=== PATIENT | male | born 1960 | race African-American/Black ===

== ENCOUNTER 2021-11-14 13:27 | Inpatient (IN) | payer MEDICAID, OTHER ==
[~2021-11-14] VITALS: Ht 182.9 cm; Wt 119.3 kg
[~2021-11-14 13:27] MED LIST: AMOXICILLIN PO; IBUPROFEN PO
[2021-11-14] MEDS ORDERED: IPRATROPIUM BROMIDE (0.02%) 0.5MG/2.5ML NEB HHN STA (14:48)
[2021-11-14] MEDS ORDERED: METHYLPREDNISOLONE SOD SUCC 125 MG/2 ML VIAL IV STA (14:48)
[2021-11-14] MEDS ORDERED: MAGNESIUM 2 G PREMIX 50 ML IV ONE (15:00)
[2021-11-14] MEDS ORDERED: ALBUTEROL (0.083%) 2.5MG/3ML NEB HHN SCH (15:00)
[2021-11-14] MEDS ORDERED: MORPHINE SULFATE 4 MG/ML CPJ (NOT FOR IM USE) IV ONE ×2 (15:00→21:00)
[2021-11-14 15:06] LABS: HEMATOCRIT. 23.2 % (42.0-52.0); HEMOGLOBIN. 7.8 g/dL (14.0-18.0); MEAN CORPUSCULAR HEMOGLOBIN 29.3 pg (28.0-32.0); MEAN CORPUSCULAR VOLUME 87.1 fL (80.0-94.0); MEAN PLATELET VOLUME 6.7 fl (7.4-10.4); PLATELET 133 x1000/uL (130-400); RED BLOOD CELL COUNT 2.67 mill/uL (4.7-6.1); RED CELL DISTRIBUTION WIDTH 17.6 % (11.6-14.6)
[2021-11-14] MEDS ORDERED: ALBUTEROL (0.083%) 2.5MG/3ML NEB ONE (15:10)
[2021-11-14 15:15] LABS: CHLORIDE 102 mEq/L (98-107)
[2021-11-14] MEDS ORDERED: ONDANSETRON HCL 4MG/2ML INJ IV ONE (15:30)
[2021-11-14 16:07] LABS: NUCLEATED RED BLOOD CELLS 1 /100 WBC; PLATELET ESTIMATE NORMAL
[2021-11-14] MEDS ORDERED: ENOXAPARIN 100MG/ML SYR SUBCUT ONE (21:00)
[2021-11-15] VITALS (10 sets, daily range): BP systolic 123–146; BP diastolic 75–105
[2021-11-15] MEDS ORDERED: MORPHINE SULFATE 2 MG/ML CPJ (NOT FOR IM USE) IV PRN (04:45)
[2021-11-15] MEDS: LORAZEPAM 0.5MG TABLET PO PRN ×2 (05:01→18:47)
[2021-11-15] MEDS ORDERED: LIDOCAINE HCL 1% 30ML VIAL (10MG/ML) ONE (07:34)
[2021-11-15] MEDS: ONDANSETRON HCL 4MG/2ML INJ IV PRN (08:19)
[2021-11-15] MEDS ORDERED: CARV6.2548 MT (08:50)
[2021-11-15] MEDS ORDERED: FERR-71 MT (08:51)
[2021-11-15] MEDS ORDERED: PANT40TA51 MT (08:51)
[2021-11-15] MEDS ORDERED: IPRATROPIUM/ALBUTEROL 0.5-3(2.5)MG/3ML NEB HHN PRN ×2 (09:30→10:30)
[2021-11-15] MEDS ORDERED: NALOXONE HCL 0.4MG/ML VIAL IV PRN (09:45)
[2021-11-15 10:08] LABS: HEMATOCRIT. 44.2 % (42.0-52.0); HEMOGLOBIN. 14.7 g/dL (14.0-18.0); MEAN CORPUSCULAR HEMOGLOBIN 29.2 pg (28.0-32.0); MEAN CORPUSCULAR VOLUME 87.6 fL (80.0-94.0); MEAN PLATELET VOLUME 7.6 fl (7.4-10.4); PLATELET 80 x1000/uL (130-400); RED BLOOD CELL COUNT 5.05 mill/uL (4.7-6.1); RED CELL DISTRIBUTION WIDTH 17.9 % (11.6-14.6)
[2021-11-15 10:15] LABS: CHLORIDE 102 mEq/L (98-107)
[2021-11-15] MEDS: HYDROCODONE/ACETAMINOPHEN 5/325MG TABLET PO PRN ×2 (10:49→16:53)
[2021-11-15] MEDS: METHYLPREDNISOLONE SOD SUCC 40 MG/ML VIAL IV SCH ×2 (10:49→17:35)
[2021-11-15] MEDS ORDERED: ACETAMINOPHEN 325MG TABLET PO PRN (12:15)
[2021-11-15] MEDS ORDERED: CLONIDINE 0.1MG TABLET PO PRN (12:15)
[2021-11-15] MEDS: DOCUSATE SODIUM SUGAR FREE 100MG/10ML UDC PO SCH ×2 (12:30→16:25)
[2021-11-15] MEDS: IPRATROPIUM/ALBUTEROL 0.5-3(2.5)MG/3ML NEB HHN SCH ×3 (12:37→20:33)
[2021-11-15] MEDS: PANTOPRAZOLE 40MG DR TABLET PO SCH (13:12)
[2021-11-15] MEDS ORDERED: VANCOMYCIN 2,000 MG in DEXT 5% WATER 500 ML IV NR (13:30)
[2021-11-15 14:24] LABS: CLARITY URINE CLEAR (CLEAR); COLOR URINE YELLOW (YELLOW); KETONES URINE TRACE (NEGATIVE); LEUKOCYTE ESTERASE URINE NEGATIVE (NEGATIVE); NITRITE URINE NEGATIVE (NEGATIVE); OCCULT BLOOD URINE NEGATIVE (NEGATIVE); PH URINE 5.5 (4.5-8.0); PROTEIN URINE TRACE (NEGATIVE); SPECIFIC GRAVITY URINE 1.023 (1.005-1.030); UROBILINOGEN URINE 0.2 E.U./dL (0.2-1.0)
[2021-11-15] MEDS: MAGNESIUM/ALUMINUM HYDROXIDE/SIMETHICONE 30ML UDC PO PRN (14:30)
[2021-11-15 14:37] LABS: *AMPHETAMINES SCREEN URINE NEGATIVE (NEGATIVE); *BARBITURATES SCREEN URINE NEGATIVE (NEGATIVE); *BENZODIAZEPINES SCREEN URINE NEGATIVE (NEGATIVE)
[2021-11-15 14:38] LABS: *COCAINE SCREEN URINE NEGATIVE (NEGATIVE); CANNABINOID URINE SCREEN NEGATIVE (NEGATIVE); METHADONE URINE SCREEN NEGATIVE (NEGATIVE); OPIATES URINE SCREEN PRESUMTIVE POSITIVE (NEGATIVE); PHENCYCLIDINE URINE SCREEN NEGATIVE (NEGATIVE)
[2021-11-15] MEDS: PIPERACILLIN/TAZOBACTAM 3.375 G in DEXTROSE 5% WATER 50 ML IV SCH ×2 (16:53→23:32)
[2021-11-15] MEDS: CARVEDILOL 6.25 MG TABLET NG SCH (16:54)
[2021-11-15] MEDS ORDERED: DOCUSATE SODIUM 100MG CAPSULE PO SCH (17:00)
[2021-11-15] MEDS ORDERED: ENOXAPARIN 30MG/0.3ML SYR SUBCUT SCH (21:00)
[2021-11-16] VITALS (22 sets, daily range): BP systolic 99–142; BP diastolic 60–102
[2021-11-16] MEDS: IPRATROPIUM/ALBUTEROL 0.5-3(2.5)MG/3ML NEB HHN SCH ×6 (00:33→20:43)
[2021-11-16] MEDS: METHYLPREDNISOLONE SOD SUCC 40 MG/ML VIAL IV SCH ×3 (03:08→16:39)
[2021-11-16 05:25] LABS: CHLORIDE 100 mEq/L (98-107)
[2021-11-16 05:31] LABS: PHOSPHORUS 4.4 mg/dL (2.5-4.9)
[2021-11-16 05:32] LABS: LDL CHOLESTEROL 63 mg/dL (5-100)
[2021-11-16 05:33] LABS: HDL CHOLESTEROL 48 mg/dL (40-59)
[2021-11-16 05:36] LABS: CREATINE KINASE 87 IU/L (39-308)
[2021-11-16 05:37] LABS: T4 FREE 0.99 ng/dL (0.76-1.46)
[2021-11-16] MEDS: PIPERACILLIN/TAZOBACTAM 3.375 G in DEXTROSE 5% WATER 50 ML IV SCH (05:52)
[2021-11-16] MEDS: LORAZEPAM 0.5MG TABLET PO PRN (07:46)
[2021-11-16] MEDS: ONDANSETRON HCL 4MG/2ML INJ IV PRN (07:49)
[2021-11-16] MEDS ORDERED: PANTOPRAZOLE 40MG DR TABLET PO SCH (09:00)
[2021-11-16] MEDS: HYDROCODONE/ACETAMINOPHEN 5/325MG TABLET PO PRN ×2 (09:26→21:41)
[2021-11-16] MEDS: CARVEDILOL 6.25 MG TABLET NG SCH ×2 (09:27→16:40)
[2021-11-16] MEDS: FERROUS SULFATE 325MG TABLET PO SCH (09:27)
[2021-11-16] MEDS: DOCUSATE SODIUM SUGAR FREE 100MG/10ML UDC PO SCH ×2 (09:27→16:39)
[2021-11-16] MEDS: PANTOPRAZOLE 40MG DR TABLET PO SCH (09:34)
[2021-11-16 10:00] LABS: NUCLEATED RED BLOOD CELLS 22 /100 WBC; PLATELET ESTIMATE DECREASED
[2021-11-16] MEDS: MAGNESIUM/ALUMINUM HYDROXIDE/SIMETHICONE 30ML UDC PO PRN ×2 (10:51→23:28)
[2021-11-16] MEDS: LORAZEPAM 1MG TABLET PO SCH ×2 (11:34→16:40)
[2021-11-16 12:00] LABS: BASOPHILS % 0.2 % (0.0-2.0); EOSINOPHILS % 0.3 % (0.0-5.0); LYMPHOCYTES % 34.7 % (20.0-50.0); MEAN CORPUSCULAR HEMOGLOBIN 29.8 pg (28.0-32.0); MEAN CORPUSCULAR VOLUME 86.8 fL (80.0-94.0); MEAN PLATELET VOLUME 7.6 fl (7.4-10.4); MONOCYTES % 9.1 % (2.0-8.0); NEUTROPHILS % 55.7 % (40.0-76.0); PLATELET 118 x1000/uL (130-400); RED BLOOD CELL COUNT 2.12 mill/uL (4.7-6.1); RED CELL DISTRIBUTION WIDTH 17.4 % (11.6-14.6)
[2021-11-16 12:03] LABS: HEMATOCRIT. 18.4 % (42.0-52.0); HEMOGLOBIN. 6.3 g/dL (14.0-18.0)
[2021-11-16 13:15] LABS: INR 1.1
[2021-11-16] MEDS ORDERED: VANCOMYCIN 1250MG in DEXTROSE 5% WATER 250ML IV SCH (18:00)
[2021-11-16] MEDS ORDERED: VANCOMYCIN 1.25GM PMX (XELLIA) 250 ML IV SCH (18:00)
[2021-11-17] VITALS (10 sets, daily range): BP systolic 104–142; BP diastolic 73–90
[2021-11-17] MEDS: IPRATROPIUM/ALBUTEROL 0.5-3(2.5)MG/3ML NEB HHN SCH ×6 (00:34→21:00)
[2021-11-17] MEDS: METHYLPREDNISOLONE SOD SUCC 40 MG/ML VIAL IV SCH ×3 (02:47→17:46)
[2021-11-17] MEDS: HYDROCODONE/ACETAMINOPHEN 5/325MG TABLET PO PRN ×3 (03:39→17:47)
[2021-11-17 07:15] LABS: BASOPHILS % 0.3 % (0.0-2.0); EOSINOPHILS % 0.6 % (0.0-5.0); HEMATOCRIT. 22.8 % (42.0-52.0); LYMPHOCYTES % 21.4 % (20.0-50.0); MEAN CORPUSCULAR HEMOGLOBIN 29.7 pg (28.0-32.0); MEAN PLATELET VOLUME 7.7 fl (7.4-10.4); MONOCYTES % 10.3 % (2.0-8.0); NEUTROPHILS % 67.4 % (40.0-76.0); PLATELET 121 x1000/uL (130-400); RED BLOOD CELL COUNT 2.69 mill/uL (4.7-6.1); RED CELL DISTRIBUTION WIDTH 16.9 % (11.6-14.6)
[2021-11-17 08:23] LABS: PHOSPHORUS 2.3 mg/dL (2.5-4.9)
[2021-11-17] MEDS: LORAZEPAM 1MG TABLET PO SCH ×2 (08:31→17:46)
[2021-11-17] MEDS: FERROUS SULFATE 325MG TABLET PO SCH (08:31)
[2021-11-17] MEDS: CARVEDILOL 6.25 MG TABLET NG SCH ×2 (08:31→17:47)
[2021-11-17] MEDS: PANTOPRAZOLE 40MG DR TABLET PO SCH (08:35)
[2021-11-17] MEDS: DOCUSATE SODIUM SUGAR FREE 100MG/10ML UDC PO SCH ×2 (08:35→17:00)
[2021-11-17] MEDS: CALCIUM CARBONATE 500MG TABLET CHEW PO PRN ×3 (09:13→21:32)
[2021-11-17] MEDS: ONDANSETRON HCL 4MG/2ML INJ IV PRN ×2 (13:47→23:39)
[2021-11-17] MEDS ORDERED: DEXT 5%/0.45% NACL 500ML 500 ML IV ONE (20:00)
[2021-11-17] MEDS: MORPHINE SULFATE 2 MG/ML CPJ (NOT FOR IM USE) IV PRN ×2 (20:07→23:43)
[2021-11-18] VITALS (8 sets, daily range): BP systolic 113–137; BP diastolic 57–81
[2021-11-18] MEDS: IPRATROPIUM/ALBUTEROL 0.5-3(2.5)MG/3ML NEB HHN SCH ×6 (00:22→20:18)
[2021-11-18] MEDS: METHYLPREDNISOLONE SOD SUCC 40 MG/ML VIAL IV SCH ×3 (02:40→17:05)
[2021-11-18] MEDS: MORPHINE SULFATE 2 MG/ML CPJ (NOT FOR IM USE) IV PRN ×3 (04:05→20:47)
[2021-11-18] MEDS: ONDANSETRON HCL 4MG/2ML INJ IV PRN ×3 (05:58→20:42)
[2021-11-18] MEDS: PANTOPRAZOLE 40MG DR TABLET PO SCH (07:30)
[2021-11-18 07:31] LABS: BASOPHILS % 0.2 % (0.0-2.0); EOSINOPHILS % 0.7 % (0.0-5.0); HEMATOCRIT. 24.3 % (42.0-52.0); HEMOGLOBIN. 8.2 g/dL (14.0-18.0); LYMPHOCYTES % 26.2 % (20.0-50.0); MEAN CORPUSCULAR HEMOGLOBIN 29.1 pg (28.0-32.0); MEAN CORPUSCULAR VOLUME 85.9 fL (80.0-94.0); NEUTROPHILS % 62.9 % (40.0-76.0); PLATELET 115 x1000/uL (130-400); RED BLOOD CELL COUNT 2.83 mill/uL (4.7-6.1)
[2021-11-18 07:37] LABS: CHLORIDE 106 mEq/L (98-107)
[2021-11-18 07:42] LABS: PHOSPHORUS 2.6 mg/dL (2.5-4.9)
[2021-11-18] MEDS: LORAZEPAM 1MG TABLET PO SCH ×2 (09:00→17:05)
[2021-11-18] MEDS: FERROUS SULFATE 325MG TABLET PO SCH (09:00)
[2021-11-18] MEDS: DOCUSATE SODIUM SUGAR FREE 100MG/10ML UDC PO SCH ×2 (09:00→17:05)
[2021-11-18] MEDS: CARVEDILOL 6.25 MG TABLET NG SCH ×2 (09:00→17:05)
[2021-11-18] MEDS: MAGNESIUM/ALUMINUM HYDROXIDE/SIMETHICONE 30ML UDC PO PRN (23:01)
[2021-11-19] VITALS (12 sets, daily range): BP systolic 119–141; BP diastolic 59–96
[2021-11-19] MEDS: IPRATROPIUM/ALBUTEROL 0.5-3(2.5)MG/3ML NEB HHN SCH ×5 (00:58→15:55)
[2021-11-19] MEDS: MORPHINE SULFATE 2 MG/ML CPJ (NOT FOR IM USE) IV PRN ×4 (01:43→21:31)
[2021-11-19] MEDS: ONDANSETRON HCL 4MG/2ML INJ IV PRN (04:29)
[2021-11-19] MEDS: DOCUSATE SODIUM SUGAR FREE 100MG/10ML UDC PO SCH ×2 (08:15→16:34)
[2021-11-19] MEDS: METHYLPREDNISOLONE SOD SUCC 40 MG/ML VIAL IV SCH ×2 (08:15→16:34)
[2021-11-19] MEDS: FERROUS SULFATE 325MG TABLET PO SCH (08:16)
[2021-11-19] MEDS: LORAZEPAM 1MG TABLET PO SCH ×2 (08:16→16:32)
[2021-11-19] MEDS: PANTOPRAZOLE 40MG DR TABLET PO SCH (08:19)
[2021-11-19] MEDS: CARVEDILOL 6.25 MG TABLET NG SCH ×2 (08:52→16:33)
[2021-11-19] MEDS: HYDROCODONE/ACETAMINOPHEN 5/325MG TABLET PO PRN ×3 (08:53→23:44)
[2021-11-19 11:18] LABS: BASOPHILS % 0.2 % (0.0-2.0); EOSINOPHILS % 0.6 % (0.0-5.0); HEMATOCRIT. 24.1 % (42.0-52.0); HEMOGLOBIN. 8.2 g/dL (14.0-18.0); LYMPHOCYTES % 35.9 % (20.0-50.0); MEAN CORPUSCULAR HEMOGLOBIN 29.5 pg (28.0-32.0); MEAN CORPUSCULAR VOLUME 86.4 fL (80.0-94.0); MONOCYTES % 5.3 % (2.0-8.0); RED BLOOD CELL COUNT 2.79 mill/uL (4.7-6.1); RED CELL DISTRIBUTION WIDTH 17.5 % (11.6-14.6)
[2021-11-19 11:23] LABS: CHLORIDE 106 mEq/L (98-107)
[2021-11-19 11:37] LABS: MEAN PLATELET VOLUME 7.1 fl (7.4-10.4); PLATELET 112 x1000/uL (130-400)
[2021-11-19] MEDS ORDERED: P20 MT (15:36)
[2021-11-19] MEDS ORDERED: LORA-250 PO (15:36)
[2021-11-19] MEDS ORDERED: PANT40TA51 MT (15:36)
[2021-11-20] VITALS (8 sets, daily range): BP systolic 103–138; BP diastolic 72–86
[2021-11-20] MEDS: MORPHINE SULFATE 2 MG/ML CPJ (NOT FOR IM USE) IV PRN ×3 (01:51→12:45)
[2021-11-20] MEDS: IPRATROPIUM/ALBUTEROL 0.5-3(2.5)MG/3ML NEB HHN SCH ×3 (04:32→14:09)
[2021-11-20] MEDS: ONDANSETRON HCL 4MG/2ML INJ IV PRN ×2 (04:38→14:48)
[2021-11-20] MEDS: HYDROCODONE/ACETAMINOPHEN 5/325MG TABLET PO PRN (04:38)
[2021-11-20] MEDS: PANTOPRAZOLE 40MG DR TABLET PO SCH (06:40)
[2021-11-20 07:14] LABS: BASOPHILS % 0.1 % (0.0-2.0); EOSINOPHILS % 0.7 % (0.0-5.0); HEMATOCRIT. 24.8 % (42.0-52.0); HEMOGLOBIN. 8.5 g/dL (14.0-18.0); LYMPHOCYTES % 34.4 % (20.0-50.0); MEAN CORPUSCULAR HEMOGLOBIN 29.6 pg (28.0-32.0); MEAN CORPUSCULAR VOLUME 86.6 fL (80.0-94.0); MONOCYTES % 9.1 % (2.0-8.0); NEUTROPHILS % 55.7 % (40.0-76.0); PLATELET 113 x1000/uL (130-400); RED BLOOD CELL COUNT 2.87 mill/uL (4.7-6.1); RED CELL DISTRIBUTION WIDTH 16.9 % (11.6-14.6)
[2021-11-20 07:17] LABS: CHLORIDE 109 mEq/L (98-107)
[2021-11-20 07:21] LABS: PHOSPHORUS 4.3 mg/dL (2.5-4.9)
[2021-11-20] MEDS: FERROUS SULFATE 325MG TABLET PO SCH (08:14)
[2021-11-20] MEDS: DOCUSATE SODIUM SUGAR FREE 100MG/10ML UDC PO SCH (08:15)
[2021-11-20] MEDS: METHYLPREDNISOLONE SOD SUCC 40 MG/ML VIAL IV SCH (08:15)
[2021-11-20] MEDS: CARVEDILOL 6.25 MG TABLET NG SCH (08:16)
[2021-11-20] MEDS ORDERED: LORAZEPAM 1MG TABLET PO NR (15:15)
[2021-11-20] MEDS ORDERED: LORAZEPAM 1MG TABLET PO PRN (15:15)
[2021-11-20] MEDS ORDERED: NALOXONE HCL 0.4MG/ML VIAL IV PRN (15:15)
[2021-11-20] MEDS ORDERED: FAMOTIDINE 20MG TABLET PO SCH (21:00)
== END 2021-11-20 17:31 | disposition home health service (06) | DRG 720 ==
LOC: ER 13:27 → 5EST 22:20 → ENRESERV 23:10 → 5EST 11-15 01:38
PROVIDERS: ADMIT Internal Medicine; ATTEND Internal Medicine
PROC: 02HV33Z Insertion of Infusion Device into Superior Vena Cava, Percutaneous Approach (ICD-10-PCS; principal; 2021-11-15)
PROC: B548ZZA Ultrasonography of Superior Vena Cava, Guidance (ICD-10-PCS; 2021-11-15)
PROC: 30233N1 Transfusion of Nonautologous Red Blood Cells into Peripheral Vein, Percutaneous Approach (ICD-10-PCS; 2021-11-16)
DX: A41.9 Sepsis, unspecified organism (principal); J96.21 Acute and chronic respiratory failure with hypoxia; N17.0 Acute kidney failure with tubular necrosis; J18.9 Pneumonia, unspecified organism; D69.6 Thrombocytopenia, unspecified; E44.1 Mild protein-calorie malnutrition; I11.0 Hypertensive heart disease with heart failure; J44.0 Chronic obstructive pulmonary disease with (acute) lower respiratory infection; C34.90 Malignant neoplasm of unspecified part of unspecified bronchus or lung; I50.9 Heart failure, unspecified; K56.7 Ileus, unspecified; D72.819 Decreased white blood cell count, unspecified; D50.0 Iron deficiency anemia secondary to blood loss (chronic); F41.9 Anxiety disorder, unspecified; R79.89 Other specified abnormal findings of blood chemistry; R74.01 Elevation of levels of liver transaminase levels; Z20.822 Contact with and (suspected) exposure to COVID-19; Z93.0 Tracheostomy status; Z79.899 Other long term (current) drug therapy; Z68.35 Body mass index [BMI] 35.0-35.9, adult; Z51.5 Encounter for palliative care; Z85.3 Personal history of malignant neoplasm of breast; Z85.819 Personal history of malignant neoplasm of unspecified site of lip, oral cavity, and pharynx; Z82.49 Family history of ischemic heart disease and other diseases of the circulatory system; S21.002A Unspecified open wound of left breast, initial encounter
CPT/HCPCS: 36415; 71045; 74018; 76937; 78580; 80048; 80053; 80061; 80076; 80305; 81003; 82270; 82550; 83605; 83735; 83880; 84100; 84145; 84439; 84443; 84484; 85025; 85379; 86850; 86900; 86920; 87070; 87426; 93005; 94640; 94660; 99285; C1725; J1650; J2270; J2405; J2543; J2920; J2930; J3370; J3475; J3490; J7060; P9016; A4315